=== PATIENT | female | born 1990 | race Caucasian/White ===

== ENCOUNTER 2019-08-22 16:30 | Emergency (ER) | payer SELFPAY ==
[2019-08-22 16:40] VITALS: BP 135/93; PULSE 100; RESP 20; TEMP 36.7; O2SAT 98
--- NOTE | 2019-08-22 16:55 | ED.SOB ---
HPI - SOB/Dyspnea General Chief Complaint: Shortness of Breath/Dyspnea Stated Complaint: wheezing and chest congestion Time Seen by Provider: 08/22/19 16:55 Source: patient and RN notes reviewed Mode of arrival: ambulatory Limitations: no limitations History of Present Illness HPI Narrative: 28-year-old female who presents to [facility] care with complaints of 3-day history of cold symptoms of runny nose, cough, headache with patient experiencing difficulty with breathing since last p.m. does have a history of asthma and use inhalers as needed. Patient states that initial head cold symptoms resolving but cough with tightness to chest has increased with wheezing and green sputum. Patient denies any known fevers, chills or sweats, denies any sore throat or any ear pain.Scattered wheezing noted on auscultation, SAO2 98% on room air, no tachypnea noted or accessory muscle use, voices tightness MD elicited complaint: shortness of breath and cough Pertinent past history: asthma Onset (ago): day(s) (3) Context: recent illness Timing: progressively worsening Exacerbating factors: exertion Known history of: asthma Associated symptoms: cough and wheezing Treatment prior to arrival: bronchodilator Related Data Home Medications Medication Instructions Recorded Confirmed drospirenone-ethinyl estradiol 1 tablet PO DAILY 08/22/19 08/22/19 [Brittni (28)] venlafaxine 150 mg PO DAILY 08/22/19 08/22/19 Allergies Allergy/AdvReac Type Severity Reaction Status Date / Time No Known Allergies Allergy Verified 08/22/19 16:54 Review of Systems Review of Systems: Narrative: CONSTITUTIONAL: Denies fever, chills, or sweats. EYES: Denies visual changes, redness, or discharge. ENT:Positive rhinorrhea,some nasal congestion,no sore throat, or otalgia. CARDIOVASCULAR: Denies chest pain, reports tightness to chest with breathing, no palpitations, or edema. RESPIRATORY: positive cough or dyspnea. GASTROINTESTINAL: Denies abdominal pain, nausea, vomiting, or diarrhea. GENITOURINARY: Denies dysuria or hematuria. SKIN: Denies rash or itching. MUSCULOSKELETAL: Denies back pain, joint pain, or myalgia. NEUROLOGIC: positive headache,no numbness, or weakness. PSYCHIATRIC: Denies anxiety or depression. All systems reviewed & are unremarkable except as noted in HPI and below PMFSH Past Medical History Medical History (Updated 08/26/19 @ 16:39 by Fernanda Quick NP) Anxiety and depression Asthma Bronchitis Surgical History Surgical History (Updated 08/26/19 @ 16:41 by Fernanda Quick NP) History of tonsillectomy and adenoidectomy Family History Family History Other Family history of malignant neoplasm of breast in first degree relative Social History Social History (Updated 08/26/19 @ 16:41 by Fernanda Quick NP) Smoking packs per day: 1 Smoking cigarettes per day: 20.0 Years smoked: 5 Smoking pack-years: 5.00 Smoking status: Current every day smoker Tobacco type: cigarettes Living arrangements: with family Gender identity (if verbalized by the patient): Female Comments At time of signature, agree with nursing past medical, social history. There is no relevant family history pertinent to the presenting complaint Exam Narrative: Exam Narrative: GENERAL: Well-appearing, well-nourished, and in no acute distress. HEAD: Normocephalic, atraumatic. EYES: PERRLA and EOMI. ENT: Nares red, clear rhinorrhea no epistaxis. Mucous membranes moist.TM's normal with good light reflex, throat mild redness, no swelling noted uvula midline post nasal drainage noted. NECK: Supple. no lymphadenopathy CHEST: Scattered wheezing to auscultation with dyspnea. No acute respiratory distress.SAO2 98%. HEART: Regular rate and rhythm. No murmur heard. Normal peripheral pulses. ABDOMEN: Soft, nontender, nondistended, normal active bowel sounds. EXTREMITIES: Normal range of motion. No edema. S
[2019-08-22] MEDS: IPRATROPIUM BR 0.02% INH SOLN 0.5 MG/2.5 ML VIAL INHALATION (17:04)
[2019-08-22] MEDS: ALBUTEROL SULFATE NEB 2.5 MG/3 ML INH INHALATION (17:04)
[2019-08-22 17:35] VITALS: PULSE 100; RESP 20; O2SAT 97
== END 2019-08-22 17:55 | disposition home or self-care (01) ==
PROVIDERS: Emergency Provider Registered Nurse
DX: J45.901 Unspecified asthma with (acute) exacerbation (principal); J06.9 Acute upper respiratory infection, unspecified; F17.210 Nicotine dependence, cigarettes, uncomplicated; F41.9 Anxiety disorder, unspecified; F31.9 Bipolar disorder, unspecified
CPT/HCPCS: 99213; G0463

== ENCOUNTER 2023-10-22 08:50 | Emergency (ER) | payer OTHER, SELFPAY ==
[2023-10-22 09:07] VITALS: BP 125/77; PULSE 98; RESP 18; TEMP 36.2; O2SAT 97
--- NOTE | 2023-10-22 09:32 | ED.URI ---
HPI - URI/Sore Throat General Chief Complaint: Upper Respiratory Infection Stated Complaint: Shortness of Breath/Cough History of Present Illness HPI Narrative: Patient presents with 5 day history of nasal congestion cough runny nose. No fever no body aches no shortness of breath no trouble swallowing no drooling. Patient states her daughter was diagnosed with COVID-19 5 days ago and she has had the same symptoms. Related Data Home Medications Medication Instructions Recorded Confirmed drospirenone 3 mg-ethinyl 1 tablet PO DAILY 08/22/19 08/22/19 estradiol 0.03 mg tablet (Brittni (28)) venlafaxine 150 mg 150 mg PO DAILY 08/22/19 08/22/19 capsule,extended release 24 hr Allergies Allergy/AdvReac Type Severity Reaction Status Date / Time No Known Allergies Allergy Verified 08/22/19 16:54 Review of Systems Review of Systems: CONSTITUTIONAL: Denies chills, or sweats. Reports fever and generalized body aches EYES: Denies visual changes, redness, or discharge. ENT: Denies otalgia. Reports nasal congestion runny nose and sore throat CARDIOVASCULAR: Denies chest pain, palpitations, or edema. RESPIRATORY: Denies dyspnea. Reports occasional cough GASTROINTESTINAL: Denies abdominal pain, nausea, vomiting, or diarrhea. GENITOURINARY: Denies dysuria or hematuria. SKIN: Denies rash or itching. MUSCULOSKELETAL: Denies back pain, joint pain, or myalgia. Reports generalized body aches NEUROLOGIC: Denies headache, numbness, or weakness. PSYCHIATRIC: Denies anxiety or depression. [facility] Past Medical History Medical History (Updated 10/22/23 @ 09:33 by DERRICK Bundy) Anxiety and depression Asthma Bronchitis Surgical History Surgical History (Updated 08/26/19 @ 16:41 by Fernanda Quick NP) History of tonsillectomy and adenoidectomy Family History Family History Other Family history of malignant neoplasm of breast in first degree relative Social History Social History (Updated 08/26/19 @ 16:41 by Fernanda Quick NP) Smoking packs per day: 1 Smoking cigarettes per day: 20.0 Years smoked: 5 Smoking pack-years: 5.00 Smoking status: Current every day smoker Tobacco type: cigarettes Living arrangements: with family Gender identity (if verbalized by the patient): Female Comments At time of signature, agree with nursing past medical, surgical, social and family history. There is no relevant family history pertinent to the presenting complaint Exam Narrative: The patient is a well-developed, well-nourished in no acute distress. SKIN: Skin is warm and dry without erythema, swelling or exudate. There is good turgor. No tenting. HEAD: Atraumatic. Normocephalic. No temporal or scalp tenderness. EYES: Moist and bright. Sclera and conjunctivae normal. No discharge. PERRLA. Extraocular motions intact. Gross visual acuity intact. EARS: Pinna is normal shape and contour. Clear external auditory canals. TM pearly laura with good cone of light, no erythema or suppuration. Bilateral cerumen noted no gross hearing deficit. NOSE: pink, moist mucosa with good air movement. Clear rhinorrhea without nasal flaring. Septum midline. Mouth: moist mucous membranes. THROAT; mild erythema noted to posterior oropharynx with moderate postnasal drainage. Without exudate or ulceration.. Uvula midline. Normal movement of soft palate. NECK: Supple and nontender with full range of motion without discomfort. No meningeal signs. LUNGS: Equal and bilateral breath sounds without wheezes, rales or rhonchi. CHEST: The chest wall is without retractions or use of accessory muscles. HEART: Has a regular rate and rhythm without murmur, gallops, click or rub. ABDOMEN: Soft, nontender with positive active bowel sounds. No rebound tenderness. EXTREMITIES: Without cyanosis, clubbing or edema. Equal 2+ distal pulses and 2 second capillary refill noted. NEUROLOGIC: al
== END 2023-10-22 09:45 | disposition home or self-care (01) ==
PROVIDERS: Emergency Provider Nurse Practitioner Family
DX: J06.9 Acute upper respiratory infection, unspecified (principal); F17.210 Nicotine dependence, cigarettes, uncomplicated; F41.9 Anxiety disorder, unspecified; F32.A Depression, unspecified; J45.909 Unspecified asthma, uncomplicated
CPT/HCPCS: 99202; G0463